=== PATIENT | female | born 1990 | race African-American/Black ===

== ENCOUNTER 2018-05-17 09:06 | Inpatient (IN) | payer OTHER, SELFPAY ==
[2018-05-17] VITALS (15 sets, daily range): BP systolic 96–118; BP diastolic 55–80; PULSE 56–94; RESP 14–20; TEMP 36.7–37.4; O2SAT 97–100
--- NOTE | 2018-05-17 | PATH_ITS ---
[facility] [place] Accession Number: [id number] . 01 Material submitted: . PART A: LEFT CORNUAL FIBROID PART B: RIGHT CORNUAL FIBROID WITH OVERLYING UTERINE SEROUSA . 02 Diagnosis: A. Left Cornual Fibroid, Excision: Leiomyoma. Negative for atypia and malignancy. . B. Right Cornual Fibroid with Overlying Serosa, Excision: Leiomyoma. Negative for atypia or malignancy. [facility]/05/21/2018 . 02 Electronically signed: . Cathleen Houston MD, Pathologist NPI- [id number] . 01 Gross description: . (A) Received in formalin, labeled L cornual fibroid, is a solid firm multinodular white whorled homogenous mass (231 grams, 8.5 x 7.2 x 6.2 cm). [place] tissue is submitted in cassettes A1-A4. (B) Received in formalin, labeled R cornual fibroid with overlying uterine serosa, is a solid firm multinodular white whorled homogenous mass (145 grams, 7.5 x 5.6 x 5.4 cm) and a piece of de santiago-smith smooth and shiny rubbery serosa (5.8 x 3.2 x 0.4 cm). The resection margin is inked black. [place] sections of the mass are submitted in cassettes B1-B4 and the serosa in B5. ([id number]) /[facility] . 02 Pathologist provided ICD-10: D25.9 . 02 CPT . 137149, [id number] Performed at: 01 [facility] [address] [place] [address] [address] [facility], [place], [place] [id number] MD Matty Arias MD Phone: [phone] Performed at: 02 [facility] [address] [address] [place] [id number] MD Cameron Ring MD Phone: [phone]
[2018-05-17] MEDS: LACTATED RINGERS 1,000 ML 100 ML IV ×3 (09:57→13:37)
--- NOTE | 2018-05-17 10:16 | PM.PREOP ---
Pre-operative Note Interval Note Pre-op Check: Yes History & Physical Reviewed by Physician Changes: No
[2018-05-17] MEDS: CEFAZOLIN 2 GM/100 ML FROZ.PIGGY IV (10:23)
--- NOTE | 2018-05-17 10:49 | SUR.OPER ---
Supine on padded OR bed, head on pillow, arms secured on padded arm boards at <90 degrees abduction, legs uncrossed, safety belt at thigh, tape over blanket over lower legs.
[2018-05-17] MEDS: BUPIVACAINE 0.5% W/ EPI (PF) VIAL 30 ML INJ (11:05)
[2018-05-17] MEDS: SODIUM CHLORIDE 0.9% 30 ML, VASOPRESSIN 20 UNIT INJ (11:09)
[2018-05-17] MEDS: fentaNYL 100 MCG/2 ML INJ 50 MCG IV ×2 (12:29→12:34)
--- NOTE | 2018-05-17 12:52 | P.OP_ITS ---
Operative Date/Time/Diagnoses Date of procedure: 05/17/18 Time of procedure: 10:30 Pre-op diagnosis: Symptomatic fibroid uterus, pelvic pain, menorrhagia, infertility Post-op diagnosis: other (As above, also mild endometriosis) Procedure: Procedures Operation Date: 05/17/18 10:15 Actual Procedures Side Surgeon p Abdominal Myomectomy Lily Agustin MD Indications: The patient is a 28-year-old 0 female here for surgical management of a large uterine fibroid. The fibroid was noted last year during evaluation for infertility and pelvic pain. Recent ultrasound noted a 9-10 cm fundal fibroid, which is causing near-daily and severe pelvic pain. She does not take pain medications but reports she has been taking herbal remedies well in [place] (to try to shrink the fibroid). Menstrual cycles occur monthly, are very heavy on day 1, and last 4 days. Her spouse is on appointment until June, but she wishes to have surgery before his return, as they wish to try to conceive as soon as possible. Infertility workup to date has included a hysterosalpingogram approximately 1 year ago that she reports was normal with patent fallopian tubes bilaterally. Her spouse has fathered 2 children, but no semen analysis or other labs have been done thus far. After review of the ultrasound findings and her symptoms the patient desired to proceed with surgical management form of abdominal myomectomy. The risks, benefits, limitations, alternatives, and expectations of surgery were discussed, and the consent was reviewed and signed prior to the surgery. Surgeon: Lily Agustin Drill Press Set Up Operator: Andriy Tarango Anesthesia Type: General and Local (0.5* arcaine with epi) Operative Notes Findings: Two very large fibroids were noted to emanate from the cornual regions of the patient's uterus. The left fibroid was slightly anterior and lateral at the cornual region. It was predominantly subserosal but not pedunculated. Upon dissection of penetration was felt to be approximately 1/3 the thickness of the myometrium. There did not seem to be any entry into the endometrium. It was also not situated near the left fallopian tube. The total size of the left fibroid measured approximately 8 half by 5 x 5 cm. The right cornual fibroid was positioned slightly more posteriorly and fundally. It was also subserosal, and the right fallopian tube was noted to originate from the lateral aspect of the fibroid. After dissection it seemed to penetrate approximately 1/2 to [address] the myometrium especially at the corneal region cut; however no endometrial entry occurred during the dissection. Three smaller fibroids were noted at the posterior aspect of the uterus measuring 5-15 mm. These were also intramural to slightly subserosal and left in situ. Endometriosis lesions (powder burn in appearance) were noted on the uterine serosa between the 2 fibroids at the fundus, within the left ovarian fossa, and at the superior pole of the left ovary. These were cauterized or removed during the surgery. The ovaries and fallopian tubes were otherwise normal in appearance, and there were no other pelvic adhesions or evidence of endometriosis. Closure Type: primary Specimen(s): other (Left cornual fibroid and right cornual fibroid) Applied: catheter Estimated blood loss (mL): 50 Blood products transfused: none Procedure in detail: The patient was taken to the operating room where general endotracheal anesthetic was administered without difficulty. She was then placed in the supine position. Abdomen, perineum, and vagina were prepped in a sterile fashion, then a Sanches catheter was placed. The patient was draped, then a procedure time-out was performed. A Pfannenstiel skin incision was then made measuring approximately 8 cm in length, 2-3 cm above the pubic bone. The subcutaneous tissue was then dissected down to the level of fascia using Bovie cautery. The rectus fascia was then nicked at the midline, and this incision was extended bilaterally using Bovie cautery. The superior aspect of the rectus fascia was then grasped at the midline with 2 Abiola clamps and tented up while the rectus muscle was dissected off posteriorly using blunt dissection and Bovie cautery. Additional cautery was utilized to ensure hemostasis. The Abiola clamps were then placed at the inferior aspect of the rectus fascia, and the rectus muscle was dissected off posteriorly in a similar fashion. The rectus muscle bellies were then bluntly dissected at the midline. The posterior sheath was then entered sharply after identifying a clear window, then the incision was extended superiorly using Bovie cautery. The peritoneal opening was further enlarged using gentle traction from the surgeons. The uterine fibroids were palpated and delivered out the abdominal incision. No abdominal retractor or packing of bowel was needed for surgery. Exam was performed and notable for a left large fibroid positioned at the cornual region and a large right fibroid positioned with the right fallopian tube at the lateral aspect. Dilute Pitressin was instilled within the uterine serosa around the base of the left fibroid. Using Bovie cautery the overlying serosa was incised, and the base of the fibroid grasped and removed from the underlying myometrium. Penetration of the fibroid into the myometrium was estimated to be approximately 1/3 thickness. There was no entry into the endometrium at this point. The myometrium was then closed in the deep space using a running, locked suture of 0 chromic. A 2nd more superficial imbricating layer was then placed, then the uterine serosa closed with a baseball type suture again using the 0 Vicryl 0 chromic. Attention was then turned to the right uterine fibroid. Again dilute Pitressin was instilled beneath the serosa along the base of the fibroid circumferentially. Using Bovie cautery the large base was incised, the fibroid was grasped, and the overlying serosa peeled off the fibroid in order to avoid entry into the endometrium and damage to the right fallopian tube which was positioned at the lateral aspect of the fibroid. Excellent hemostasis was noted , and the myometrial penetration noted to be approximately 1/2 to 3/4 thickness especially at the cornual region and adjacent to the fallopian tube. There was no notable entry into the endometrium. The deep tissue was then closed with running locked suture of 0 chromic, followed by an imbricating suture more superficially, followed by a baseball suture. Pressure was held on both suture lines to ensure hemostasis. Three smaller fibroids were also noted at the posterior aspect of the uterus. They measured approximately 5-15 mm, were intramural to slightly subserosal, and left in situ. Prior to the dissection of the fibroids, it was noted the patient had suspected endometriosis lesions positioned on the uterine serosa between the 2 fibroids. This was removed with the dissection of the fibroids. Additional endometriosis lesions were noted within the left ovarian fossa and on the left ovary. These were cauterized with Bovie. The uterine cul-de-sac anteriorly and posteriorly was then irrigated and suctioned. The uterine incisions were again inspected and noted to be hemostatic. The uterus was then replaced into the abdomen, and Interceed applied to the anterior/left, vertical and superior/right horizontal incision. The bowel and omentum were then allowed to lay over the uterus. The rectus muscles and peritoneum were then closed with a running nonlocked suture of 0 Vicryl. Examination of the fascia and rectus muscle noted no bleeding. The rectus fascia was then closed with a running nonlocked suture of 0 Vicryl. The subcutaneous tissue was then copiously irrigated and reapproximated with 2-0 Vicryl interrupted sutures. The skin was then closed with 4 Monocryl in a subcuticular fashion followed by application of Exofin skin glue. Local anesthetic utilizing 20 mL of 0.5% Marcaine with epinephrine was injected into the subcutaneous tissue prior to the application of the glue. At this point the procedure was deemed complete. Sponge, lap, and needle counts were correct x3. The patient was subsequently transferred to the post- anesthesia care unit in stable condition. Complications: none Post-operative Condition: stable Disposition: Acute Care Plan for aftercare: Admit to [facility] then routine postop care. Anticipate discharge home at 24-38 hrs postop.
[2018-05-17] MEDS: MEPERIDINE 50 MG/ML 25 MG IV (13:05)
[2018-05-17] MEDS: KETOROLAC 30 MG/ML VIAL IV (13:38)
[2018-05-17] MEDS: MORPHINE 4 MG/ML INJ IV ×2 (14:37→19:44)
[2018-05-17] MEDS: OXYCODONE/ACETAMINOPHEN 5/325 TABLET 2 TAB PO (20:11)
--- NOTE | 2018-05-17 20:42 | PC.NURSE ---
Evening SHift Note- patient alert and oriented and able to make needs known to staff. patient pleasent, calm, and cooperative with care. patient very soft spoken. PRN IV Morphine given for complaints of 9/10 pain. patient tolerated without issue. PRN PO Percocet given for pain. patient tolerated without issue. pateint requested moreno cath be removed due to discomfort. cath removed, 1000cc's urine noted. Safety measures in place. call sanders and phohne within reach. will continue to monitor.
[2018-05-18] VITALS (9 sets, daily range): BP systolic 99–134; BP diastolic 52–74; PULSE 64–77; RESP 16–18; TEMP 36.4–37.2; O2SAT 98–100
[2018-05-18] MEDS: LACTATED RINGERS 1,000 ML 100 ML IV (00:09)
[2018-05-18] MEDS: KETOROLAC 30 MG/ML VIAL IV ×3 (00:13→13:58)
[2018-05-18] MEDS: MORPHINE 4 MG/ML INJ IV (04:51)
[2018-05-18 05:51] LABS: Add Manual Diff / Slide Review NO; Basophils Percent Auto 0.2 % (0-2); Hematocrit 30.7 % (36-46); Hemoglobin 10.6 g/dL (12.0-16.0); Lymphocytes Percent Auto 17.4 % (25-40); Mean Corpuscular HGB Conc 34.7 % (30-36); Mean Corpuscular Hemoglobin 28.9 PG (26-34); Mean Corpuscular Volume 83.3 fL (80-100); Monocytes Percent Auto 13.3 % (3-14); Neutrophils Absolute Auto 5000 /uL (3000-5900); Neutrophils Percent Auto 69.1 % (50-75); Red Blood Cell Count 3.68 X10^6/uL (4.0-5.2); Red Cell Distribution Width 15.7 % (11.6-14.8); White Blood Cell Count 7.2 X10^3/uL (4.5-11.0)
[2018-05-18 06:00] LABS: Platelet Count 91 X10^3/uL (150-400)
[2018-05-18] MEDS: OXYCODONE/ACETAMINOPHEN 5/325 TABLET 2 TAB PO ×3 (07:59→21:19)
--- NOTE | 2018-05-18 14:35 | PC.NURSE ---
Post-op: Up in room and to the bathroom indep since IVF saline locked. Movement slow but steady. Has had better pain control this afternoon with the percocet and toradol. Voids w/out diff. Incision intact, minimal redness, edges approx. Sl nausea this am, foods ordered which were requested. Did take a small amt. Had a better appetite this afternoon. Plans to d/c home tomorrow.
--- NOTE | 2018-05-18 17:04 | CM.IDA ---
28 yo female POD#1 from fibroid surgery w/ Dr Agustin. Pt indp at baseline and in rm. Pt sleeping throughout the day and this MANAGER MATERIAL does not want to wake. Pt expected to return home when medically cleared w/family. Spouse is deployed until June. Likely no barriers to safe DC plan home, CM team will follow closely in case concerns or needs arise. 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 No History Provided By Medical Record Household Members spouse family Type of transporation used prior to Drives own vehicle admit Independent with ADL's Yes Is patient alert and oriented? Yes Discharge Plan Home Transportation Arrangement Family Referrals Initiated None needed Review Status In Process
--- NOTE | 2018-05-18 19:04 | P.PN_ITS ---
Subjective Date Patient Seen: 05/18/18 Time Patient Seen: 18:59 Interval history: The patient did fairly well overnight. Her pain has been well controlled with oral pain medication, though she notes she has not been out of bed walking much it today. She denies any nausea or vomiting but has had minimal appetite and has not eaten much today. Her Sanches catheter was removed this morning, and she has measured due to void. Overall, she is feeling well and content with the surgery. Exam Vital Signs (past 8 hours): - 05/18/18 12:15 05/18/18 15:45 05/18/18 16:29 Temperature 97.5 F L 98.9 F Pulse Rate 76 75 Respiratory Rate 18 16 Blood Pressure 134/67 H 99/52 L Pulse Oximetry 100 100 98 Oxygen Delivery Method Room Air Oxygen Flow Rate 0 Narrative Exam Narrative: General: The patient is lying in bed in no apparent distress, alert and oriented x3. Lungs: Clear to auscultation bilaterally. No wheezes or crackles. Heart: Regular rate and rhythm with no murmurs, rubs, or gallops. Abdomen: Soft and appropriately tender near the incision. Bowel sounds are heard infrequently. No distention is noted. Incision: Skin glue in place. There is no erythema, induration, or separation. Extremities: Warm and well-perfused with no clubbing, cyanosis, or edema. Objective Labs Result Diagrams: 05/18/18 05:30 Labs: Laboratory Results - last 24 hr 05/18/18 05:30 WBC 7.2 RBC 3.68 L Hgb 10.6 L Hct 30.7 L MCV 83.3 MCH 28.9 MCHC 34.7 RDW 15.7 H Plt Count 91 L Neut % (Auto) 69.1 Lymph % (Auto) 17.4 L [place] % (Auto) 13.3 Eos % (Auto) 0.0 L Baso % (Auto) 0.2 Neut # (Auto) 5000 Assessment & Plan Post-op Postoperative Procedures Operation Date: 05/17/18 10:15 Actual Procedures Side Surgeon p Abdominal Myomectomy Lily Agustin MD Postoperative day: 1 Postoperative status: doing well Postoperative plan: routine post-op care, ambulate, advance diet and other ( Reviewed surgery and images with the patient. Anticipate discharge home tomorrow.) Time Spent With Patient less than 15 minutes
--- NOTE | 2018-05-18 22:49 | PC.NURSE ---
Addendum entered by Brendon Wade R.N. 05/18/18 22:50: PATIENT WAS ALSO ABLE TO EAT APPROX. 50% OF HER DINNER WITHOUT NAUASEA Original Note: PATIENT UP SBA/INDEP AMBULATING IN THE HALLS, x2 PERCOCETS GIVEN AFTER WALK.
[2018-05-19 00:54] VITALS: BP 95/53; PULSE 65; RESP 16; TEMP 37.2; O2SAT 99
[2018-05-19] MEDS: OXYCODONE/ACETAMINOPHEN 5/325 TABLET 2 TAB PO ×2 (01:22→09:31)
[2018-05-19 05:39] VITALS: BP 86/57; PULSE 65; RESP 16; TEMP 36.9; O2SAT 97
[2018-05-19 07:00] VITALS: O2SAT 100
[2018-05-19 08:00] VITALS: BP 107/63; PULSE 83; RESP 18; TEMP 37.1; O2SAT 100
--- NOTE | 2018-05-19 09:27 | P.DS_ITS ---
History of Present Illness Date Patient Seen: 05/19/18 Time Patient Seen: 09:18 Chief complaint: Pelvic pain Narrative: The patient is a 28-year-old female 0, here for abdominal myomectomy for surgical management symptomatic fibroid uterus. Please see scanned admission H&P for details. Discharge Providers Date of admission: 05/17/18 09:06 Primary care physician: Chandu Fisher CNP Consults: None Discharge provider: Lily Agustin MD Discharge Date: 05/19/18 Summary Discharge Diagnosis: Status post abdominal myomectomy Hospital Course: After an uncomplicated surgery, the patient was admitted to the postanesthesia care unit and then the phelan in stable condition. On postoperative day 1, her Sanches catheter was removed, her diet was advanced, and she was transitioned to oral pain medications as tolerated. She passed flatus on the night of postoperative day 1. However, she had poor appetite, and ambulation had been minimal during the day. On postoperative day 2, she continued to tolerate a regular diet (with improved appetite), pain was better controlled, she was ambulating more, and she felt better for discharge. She was afebrile with normal and stable vital signs during her hospital stay. Status at Discharge Cognitive/behavioral status at discharge: Stable, appropriate cognitive behavior Functional status at discharge: independent ambulation Overall status at discharge: patient is progressing back to baseline ( Appropriate postop pain) Time Spent with Patient Less than 30 minutes Exam Vital Signs (past 8 hours): - 05/19/18 05:39 Temperature 98.4 F Pulse Rate 65 Respiratory Rate 16 Blood Pressure 86/57 L Pulse Oximetry 97 Oxygen Delivery Method Room Air Oxygen Flow Rate 0 Narrative Exam Narrative: General: The patient is sitting up in bed and well appearing. She is alert and oriented x3. Lungs: Clear to auscultation bilaterally. No wheezes or crackles noted. Heart: Regular rate and rhythm. No murmurs rubs or gallops present. Abdomen: Soft and appropriately tender. Bowel sounds heard throughout. Incision: Exophytic skin glue in place. There is no erythema, separation, or discharge. Extremities: Warm and well perfused with no clubbing, cyanosis, or edema. Objective Labs Result Diagrams: 05/18/18 05:30 Discharge Plan Discharge Plan Patient Disposition: Home, Self-Care Discharge comment: Patient has discharge meds: ibuprofen, Percocet, and surfak Discharge Med Rec/Prescriptions Prescriptions: No Action No Known Home Medications RF: 0 Provider Discharge Instructions Diet: Diet as Tolerated and Regular Activity: See handout. Pelvic rest for 2 wks. No driving for 2-3 wks (OK once pain-free off narcotic pain meds). No strenuous exercise or heavy lifting for 4 weeks. Cold/Heat Therapy: As needed for pain mgmt Oxygen: None Other treatments: None Skin/Wound/Dressing Care Skin care: Keep incision clean, dry Report to your healthcare provider any signs of infection, such as:: chills, fever, night sweats, increased pain and unusual drainage Dressing: None; skin glue may start to peel off in 2 wks Other wound treatment: None Discharge Data Primary Care Provider: Chandu Fisher Attending Provider: Lily Agustin Admit Date/Time: 05/17/18 09:06
--- NOTE | 2018-05-19 12:50 | PC.NURSE ---
Angel was disch. to home accompanied by friend Loly, who is very supportive. Disch. in stable condition. She was very resistant to amb. in halls, however, she did freely amb. in room independ. Able to eat both brkfst. and lunch w/out problems. Voiding. States no vaginal discharge. Taking Percocet 5/325mg for pain control. Spent extended period of time with all discharge teaching in great detail. Angel did verbalize understanding of meds, when to call the MD, pelvic rest, and when her next appt. is scheduled.
== END 2018-05-19 12:45 | disposition home or self-care (01) | DRG 743 ==
PROVIDERS: Admitting Provider Obstetrics & Gynecology; PCP Registered Nurse Diabetes Educator; Visit Provider Obstetrics & Gynecology
PROC: 0WJJ0ZZ Inspection of Pelvic Cavity, Open Approach (ICD-10-PCS; CPT 49000; principal; 2018-05-17 10:15)
DX: D25.2 Subserosal leiomyoma of uterus (principal); R10.2 Pelvic and perineal pain; N92.0 Excessive and frequent menstruation with regular cycle; N97.8 Female infertility of other origin; N80.1 Endometriosis of ovary; N80.0 Endometriosis of uterus; D25.1 Intramural leiomyoma of uterus
CPT/HCPCS: 36415; 85025; 88305; J0330; J0690; J1100; J1170; J1885; J2175; J2250; J2270; J2405; J2704; J3010